=== PATIENT | female | born 1945 | race Caucasian/White ===

== ENCOUNTER 2022-02-07 05:40 | Day surgery (SDC) | payer MEDICARE, BC ==
[2022-02-03 09:34] LABS: BASOPHILS # (AUTO) 0.1 X10'3 (0-0.2); BASOPHILS % (AUTO) 1.1 % (0-1); EOSINOPHILS # (AUTO) 0.1 X10'3 (0-0.9); EOSINOPHILS % (AUTO) 1.6 % (0-6); HEMATOCRIT 43.2 % (35.0-45.0); HEMOGLOBIN 14.8 g/dl (12.0-16.0); LYMPHOCYTES # (AUTO) 1.4 X10'3 (1.1-4.8); LYMPHOCYTES % (AUTO) 22.1 % (21-51); MEAN CORPUSCULAR HEMOGLOBIN 31.1 PG (27.0-31.0); MEAN CORPUSCULAR HGB CONC 34.2 g/dL (33.0-36.5); MEAN PLATELET VOLUME 8.9 FL (7.4-10.4); MONOCYTES # (AUTO) 0.5 X10'3 (0-0.9); MONOCYTES % (AUTO) 8.2 % (2-12); NEUTROPHILS # (AUTO) 4.3 X10'3 (1.8-7.7); PLATELET COUNT 239 X10'3 (140-440); RED BLOOD COUNT 4.76 X10'6 (4.20-5.60); RED CELL DISTRIBUTION WIDTH 13.4 % (11.5-14.5); WHITE BLOOD COUNT 6.4 X10'3 (4.5-11.0)
[2022-02-03 09:41] LABS: APTT 33 SECONDS (22-32)
[2022-02-03 09:43] LABS: ALBUMIN 3.9 G/DL (3.4-5.0); BLOOD UREA NITROGEN 10 MG/DL (7-18); BUN/CREATININE RATIO 13.2 (6.6-38.0); CHLORIDE 105 MMOL/L (99-107); CHOL/HDL RATIO 3.3 (0.00-4.99); CHOLESTEROL 251 MG/DL (0-200); CREATININE 0.76 MG/DL (0.40-0.90); GLUCOSE 115 MG/DL (70-104); HDL CHOLESTEROL 75 MG/DL (35-60); LDL CHOLESTEROL 160 MG/DL (50-100); POTASSIUM 3.6 MMOL/L (3.5-5.1); TOTAL CARBON DIOXIDE 26.8 MMOL/L (24-32); TRIGLYCERIDES 61 MG/DL (20-135); eGFR 73 ML/MIN
[2022-02-03 09:44] LABS: ANION GAP 10 (8-16); SODIUM 142 MMOL/L (135-145)
[2022-02-07] VITALS (8 sets, daily range): BP systolic 134–236; BP diastolic 58–102
[~2022-02-07] VITALS: Ht 165.1 cm; Wt 88.5 kg
[2022-02-07] MEDS ORDERED: diphenhydrAMINE 25mg capsule PO PRN (06:05)
[2022-02-07] MEDS ORDERED: normal saline 1,000 ML IV SCH (06:05)
[2022-02-07] MEDS ORDERED: LORazepam 0.5 MG tablet PO PRN (06:05)
[2022-02-07] MEDS ORDERED: vitamin c PO (06:16)
[2022-02-07] MEDS ORDERED: coq10 PO (06:16)
[2022-02-07] MEDS ORDERED: zinc PO (06:16)
[2022-02-07] MEDS ORDERED: l-lysine PO (06:16)
[2022-02-07] MEDS ORDERED: CALC-774 PO (06:16)
[2022-02-07] MEDS ORDERED: tylenol PO (06:16)
[2022-02-07] MEDS ORDERED: MULT400C3 PO (06:16)
[2022-02-07] MEDS ORDERED: vitamin B12 PO (06:16)
[2022-02-07] MEDS ORDERED: OMEG-5 PO (06:16)
[2022-02-07] MEDS ORDERED: vitamin d3 PO (06:16)
[2022-02-07] MEDS ORDERED: probiotic PO (06:16)
[2022-02-07] MEDS ORDERED: magnesium PO (06:16)
[2022-02-07] MEDS ORDERED: fentaNYL/PF 50MCG/1 ML 2ML syringe ONE (06:23)
[2022-02-07] MEDS ORDERED: nitroGLYCERIN-Tridil 50MG/D5W 250 ML IV ONE (06:23)
[2022-02-07] MEDS ORDERED: LIDOcaine 1% (10mg/ml) 2ml vial ONE (06:23)
[2022-02-07] MEDS ORDERED: heparin 1,000unit/ml 10ml vial 10 ML ONE (06:23)
[2022-02-07] MEDS ORDERED: iohexol 350MG/ML 100ml bottle IV ONE (06:23)
[2022-02-07] MEDS ORDERED: verapamil 2.5 mg/ml inj IV ONE (06:23)
[2022-02-07] MEDS ORDERED: midazolam 1 mg/ML 2ml injection ONE ×2 (06:23→06:58)
[2022-02-07] MEDS ORDERED: hydrALAZINE 20mg/ml inj. IV ONE (07:15)
--- NOTE | 2022-02-07 07:40 | NUR ---
Pt voided, bedpan used. 500ml out. labeling associate reported 350ml void out in lab.
--- NOTE | 2022-02-07 08:08 | NUR ---
pt sitting up in bed, eating breakfast. Site stable. Denies cp, denies sob. Denies pain. Addendum: 02/07/22 at 0809 by Tressa Ramon RN pt appears comfortable while watching TV
[2022-02-07] MEDS ORDERED: HYDROcodone/acetaminophen 10/325mg tab PO PRN (09:15)
[2022-02-07] MEDS ORDERED: HYDROcodone/acetaminophen 5mg/325mg tablet PO PRN (09:15)
[2022-02-07] MEDS ORDERED: nitroGLYCERIN 0.4mg SUBLingual tab SL PRN (09:15)
[2022-02-07] MEDS ORDERED: OXAZEpam 15mg capsule PO PRN (09:15)
[2022-02-07] MEDS ORDERED: ondansetron/PF 4mg/2ml inj IV PRN (09:15)
[2022-02-07] MEDS ORDERED: proCHLORperazine 10 MG/2 ml inj IV PRN (09:15)
== END 2022-02-07 10:48 | disposition home or self-care (01) ==
LOC: SSTAY O 05:40
PROVIDERS: ATTEND Internal Medicine Interventional Cardiology
DX: I25.10 Atherosclerotic heart disease of native coronary artery without angina pectoris (principal); I35.0 Nonrheumatic aortic (valve) stenosis; I10 Essential (primary) hypertension; Z79.01 Long term (current) use of anticoagulants; Z88.1 Allergy status to other antibiotic agents; Z88.8 Allergy status to other drugs, medicaments and biological substances; Z79.899 Other long term (current) drug therapy; Z98.890 Other specified postprocedural states
CPT/HCPCS: 36415; 80048; 80061; 85025; 85610; 85730; 93005; 93454; 99152; C1751; C1769; C1894; J0360; J1644; J2250; J3010; J3490; J7030; Q0163; Q9967; 99153; A4620; A6258; A6402

== ENCOUNTER 2022-06-16 12:06 | Outpatient (CLI) | payer MEDICARE, BC ==
[~2022-06-16 12:06] MED LIST: CALC-774 PO; MULT400C3 PO; OMEG-5 PO; coq10 PO; l-lysine PO; magnesium PO; probiotic PO; tylenol PO; vitamin B12 PO; vitamin c PO; vitamin d3 PO; zinc PO
[2022-06-16 13:15] LABS: BASOPHILS # (AUTO) 0.1 X10'3 (0-0.2); BASOPHILS % (AUTO) 0.9 % (0-1); EOSINOPHILS # (AUTO) 0.1 X10'3 (0-0.9); EOSINOPHILS % (AUTO) 0.9 % (0-6); HEMATOCRIT 41.9 % (35.0-45.0); HEMOGLOBIN 14.1 g/dl (12.0-16.0); LYMPHOCYTES # (AUTO) 1.4 X10'3 (1.1-4.8); LYMPHOCYTES % (AUTO) 21.6 % (21-51); MEAN CORPUSCULAR HEMOGLOBIN 31.1 PG (27.0-31.0); MEAN CORPUSCULAR HGB CONC 33.7 g/dL (33.0-36.5); MEAN CORPUSCULAR VOLUME 92.2 FL (78-98); MEAN PLATELET VOLUME 8.8 FL (7.4-10.4); MONOCYTES # (AUTO) 0.6 X10'3 (0-0.9); MONOCYTES % (AUTO) 8.5 % (2-12); NEUTROPHILS # (AUTO) 4.4 X10'3 (1.8-7.7); NEUTROPHILS % (AUTO) 68.1 % (42-75); PLATELET COUNT 250 X10'3 (140-440); RED BLOOD COUNT 4.55 X10'6 (4.20-5.60); RED CELL DISTRIBUTION WIDTH 13.4 % (11.5-14.5); WHITE BLOOD COUNT 6.5 X10'3 (4.5-11.0)
[2022-06-16 13:30] LABS: APTT 44 SECONDS (22-32)
[2022-06-16 13:34] LABS: ALANINE AMINOTRANSFERASE 16 U/L (12-78); ALBUMIN 3.8 G/DL (3.4-5.0); ALKALINE PHOSPHATASE 77 IU/L (46-116); ANION GAP 9 (8-16); ASPARTATE AMINO TRANSFERASE 16 U/L (10-37); BILIRUBIN,TOTAL 0.3 MG/DL (0.1-1.0); BLOOD UREA NITROGEN 9 MG/DL (7-18); CALCIUM 9.1 MG/DL (8.5-10.1); CHLORIDE 106 MMOL/L (99-107); GLUCOSE 103 MG/DL (70-104); POTASSIUM 3.8 MMOL/L (3.5-5.1); SODIUM 141 MMOL/L (135-145); TOTAL CARBON DIOXIDE 26.2 MMOL/L (24-32); TOTAL PROTEIN 7.8 G/DL (6.4-8.2); eGFR > 90 ML/MIN
[2022-06-16] MEDS ORDERED: IODIXANOL 320 MG/ML INFUS..BTL 100ML IV ONE (14:45)
== END 2022-06-16 23:59 | disposition home or self-care (01) ==
LOC: RAD 12:06
PROVIDERS: ATTEND Internal Medicine Cardiovascular Disease
DX: Z01.818 Encounter for other preprocedural examination (principal); I08.0 Rheumatic disorders of both mitral and aortic valves; J84.10 Pulmonary fibrosis, unspecified; R91.1 Solitary pulmonary nodule; K76.0 Fatty (change of) liver, not elsewhere classified; N20.0 Calculus of kidney; K57.30 Diverticulosis of large intestine without perforation or abscess without bleeding; K42.9 Umbilical hernia without obstruction or gangrene; K40.20 Bilateral inguinal hernia, without obstruction or gangrene, not specified as recurrent; I25.10 Atherosclerotic heart disease of native coronary artery without angina pectoris; R16.0 Hepatomegaly, not elsewhere classified; M47.817 Spondylosis without myelopathy or radiculopathy, lumbosacral region; I65.29 Occlusion and stenosis of unspecified carotid artery; Z79.899 Other long term (current) drug therapy
CPT/HCPCS: 36415; 71046; 71275; 74174; 80053; 85025; 85610; 85730; 94010; 94727; 94729; J3490; Q9967